=== PATIENT | female | born 1950 ===

== ENCOUNTER 2024-03-01 08:34 | Day surgery (SDC) | payer MEDICARE, SELFPAY ==
[2024-03-01 08:36] VITALS: BP 222/89; PULSE 70; RESP 16; TEMP 35.9; O2SAT 99
[2024-03-01] MEDS: Tropicam./Phenyleph. (1/2.5%) 5 ML BTL OS ×3 (08:53→09:02)
--- NOTE | 2024-03-01 09:47 | W.ANESPRE ---
General Info Date of Service Date Performed: 03/01/24 Height: 4 ft 7 in Weight: 63.4 kg Body Mass Index (BMI): 32.5 Surgical Procedure: Operation Date: 03/01/24 10:40 Proposed Procedure Side Surgeon p Cataract Extraction with IOL Implant Left Matthew Ramírez MD Meds Allergies and Home Medications Allergies Allergy/AdvReac Type Severity Reaction Status Date / Time insect venom Allergy Intermediate Other (See Verified 03/01/24 08:49 Comment) paroxetine Allergy Intermediate Swelling/Ed Verified 03/01/24 08:49 roger Home Medication ?Medication ?Instructions ?Recorded aspirin 81 mg tablet,delayed 81 mg PO DAILY 02/27/24 release (Adult Aspirin Regimen) calcium 600 mg (as 1 cap PO BID 02/27/24 carbonate)-vitamin D3 10 mcg (400 unit) capsule ergocalciferol (vitamin D2) 1,250 1,250 mcg PO Q2W 02/27/24 mcg (50,000 unit) capsule latanoprost 0.005 % eye drops 1 drp ophthalmic (eye) DIRECTED 02/27/24 lisinopril 10 mg tablet 10 mg PO DAILY 02/27/24 lovastatin 40 mg tablet 40 mg PO QHS 02/27/24 metformin 500 mg tablet,extended 500 mg PO DAILY 02/27/24 release 24 hr prednisone 1 mg tablet 1 mg PO DAILY 02/27/24 triamterene 75 1 tab PO DAILY 02/27/24 mg-hydrochlorothiazide 50 mg tablet venlafaxine 75 mg capsule,extended 75 mg PO DAILY 02/27/24 release 24 hr (Effexor XR) Current Visit Medications: Current Medications Generic Name Dose Route Start Last Admin Trade Name Freq PRN Reason Stop Dose Admin Acetaminophen 1,000 mg 03/01/24 06:00 Acetaminophen 500 Mg Tab PO 03/31/24 05:59 Q4H PRN PRN Balanced Salt Solution 500 ml 03/01/24 06:00 Balanced Salt Soln.-Plus 500 Ml Bag OP 03/31/24 05:59 DIRECTED MOSES Miscellaneous Medication 0 ml 03/01/24 06:00 Prednisolone 1%, Moxifloxacin 0.5%, Bromfenac 0.09% 5.6ml Btl OS 03/31/24 05:59 DIRECTED MOSES Miscellaneous Medication 0 ml 03/01/24 06:00 03/01/24 09:02 Tropicam./Phenyleph. 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 Hypertension Hyperlipemia JAVIER (generalized anxiety disorder) Giant cell arteritis Environmental allergies Diabetic peripheral neuropathy Depressive disorder Cataract Arthritis Surgical History Surgical History Hx of tonsillectomy H/O: hysterectomy History of surgery left breast, procedure on right axilla History of colonoscopy Tobacco Smoking/Tobacco Use Status: Former Tobacco Use Alcohol Alcohol Intake: never Substance Use Substance use: Never Substance use type: does not use Vital Signs and Lab Results Vital Signs Most Recent Vital Signs in EMR: Most Recent Vital Signs Temp Pulse Resp BP Pulse Ox 35.9 C L 70 16 222/89 H 99 03/01/24 08:36 03/01/24 08:36 03/01/24 08:36 03/01/24 08:36 03/01/24 08:36 Lab Results Blood Type / Crossmatch: No Data to Display Complete Blood Count: No Data to Display Complete Metabolic Panel: No Data to Display Liver Function Panel: No Data to Display Coagulation Panel: No Data to Display Cardiac Panel: No Data to Display Arterial Blood Gas: No Data to Display Venous Blood Gas: No Data to Display Pancreas Panel: No Data to Display Thyroid Panel: No Data to Display Infectious Disease: No Data to Display Blood Cultures: No Data to Display Toxicology Panel: No Data to Display Anesthesia Assessment and Plan Anesthesia History Personal History: No History of Anesthesia Complications Family History: No Family History of Anesthesia Complications Exercise Tolerance Exercise Tolerance: Metabolic Equivalents>4 Pertinent Negatives Pertinent Negatives: No Symptoms of GERD Cardiac & Pulmonary Exam Cardiac Exam: Normal S1/S2 Heart Sounds Pulmonary Exam: Clear Bilateral Breath Sounds Implantable Cardiac Device Does patient have a Pacemaker or an ICD?: No Airway Exam Known Difficult Airway: No Mallampati Class: 2 Mouth Opening: Normal (> 3cm) Thyromental Distance: Greater than 3 cm Neck Range of Motion: Full ROM Neck Circumference: Normal Teeth Condition: Normal Dentition ASA Classification ASA Score: ASA 3 Emergency Case?: No NPO Status NPO Status: NPO Clears >2 hours, Solids >8 hours Anesthesia Plan Resuscitation Status: Full Code Anesthesia Technique: MAC Anesthesia Airway Planned: Natural Airway Monitors Used: Standard Monitors Preoperative Comments:: Generalized anxiety disorder.
[2024-03-01 09:49] VITALS: BMI 32.5
[2024-03-01] MEDS: Duovisc Viscoelastic System EACH 1 EACH (10:18)
[2024-03-01] MEDS: Lidocaine 1% Pres-Free 5 ML VIAL (10:18)
[2024-03-01] MEDS: Phenylephrine/Lidocaine (15/10) MG/ML 1 ML VIAL (10:19)
[2024-03-01] MEDS: Balanced Salt Soln.-PLUS 500 ML BAG OP (10:20)
[2024-03-01] MEDS: Povidone-Iodine Ophth 30 ML BTL (10:20)
[2024-03-01] MEDS: Trypan Blue 0.06% 0.5 ML SYR (10:20)
[2024-03-01] MEDS: Tetracaine 0.5% 4 ML BTL OS (10:21)
[2024-03-01] MEDS: Prednisolone 1%, Moxifloxacin 0.5%, Bromfenac 0.09% 5.6ML BTL OS (10:21)
[2024-03-01 10:39] VITALS: BP 157/92; PULSE 66; RESP 16; TEMP 36.1; O2SAT 97
--- NOTE | 2024-03-01 10:43 | W.PM.DSUDISC ---
Date of service: 03/01/24 Discharge Plan Disposition Patient Disposition: Home Discharge Details Attending Provider: Matthew Ramírez Home Meds and New Rx's Prescriptions: No Action aspirin [Adult Aspirin Regimen] 81 mg tablet,delayed release (DR/EC) 81 mg PO DAILY calcium carbonate-vitamin D3 600 mg-10 mcg (400 unit) capsule 1 cap PO BID ergocalciferol (vitamin D2) 1,250 mcg (50,000 unit) capsule 1,250 mcg PO Q2W latanoprost 0.005 % drops 1 drp ophthalmic (eye) DIRECTED lisinopril 10 mg tablet 10 mg PO DAILY lovastatin 40 mg tablet 40 mg PO QHS metformin 500 mg tablet extended release 24 hr 500 mg PO DAILY prednisone 1 mg tablet 1 mg PO DAILY triamterene-hydrochlorothiazid 75-50 mg tablet 1 tab PO DAILY venlafaxine [Effexor XR] 75 mg capsule,extended release 24hr 75 mg PO DAILY Discharge Instructions Stand Alone Forms: [facility] Post-Op Cataract, Volodymyr Stewart ([facility]) Discharge Orders Discharge Orders: Discharge Order (Routine); Ordered 03/01/24 Ordered By: Matthew Ramírez DS: Diagnosis Discharge Diagnosis (1) Cortical age-related cataract, left eye: Status: Resolved (2) Nuclear age-related cataract, left eye: Status: Resolved
--- NOTE | 2024-03-01 10:44 | W.PM.OP ---
Operative Note Operative Note PRE-OP DIAGNOSIS: Dense nuclear/cortical cataract, left eye POST-OP DIAGNOSIS: same PROCEDURE: Cataract extraction using phacoemulsification with intraocular lens implant, left eye SURGEON: Matthew Ramírez ANESTHESIA TYPE: Local By Surgeon and MAC Refer to Anesthesia Record PATHOLOGY: none sent COMPLICATIONS: None Patient was transported to: same day Patient's condition: stable Implants: Jovany Clareon [id number] Indications: Progressive decreased vision due to cataract, left eye Procedure Description: CATARACT SURGERY OPERATIVE REPORT PREOPERATIVE DIAGNOSIS: Dense nuclear/cortical cataract, left eye POSTOPERATIVE DIAGNOSIS: Same OPERATION: Cataract extraction using phacoemulsification with posterior chamber intraocular lens implant, left eye. IOL: IOL Underwriting Technician/Model: Jovany Clareon [id number] IOL Power: + 27.0 diopters IOL Serial Number: [id number] Optic Diameter: 6.0mm Haptic/Overall Diameter: 13.0mm PHACO INFO: Jovany Centurion Vision System with OZil and Active Fluidics Cumulative Dispersed Energy (CDE): 4.53 seconds SURGEON: Matthew Ramírez MD, TARA ANESTHESIA: Monitored Anesthesia Care (MAC), with local sub-tenon's anesthetic infiltration COMPLICATIONS: None SPECIMENS: None INDICATIONS FOR PROCEDURE: The patient is a 73-year-old lady with history of diminished visual acuity in her left eye secondary to the development of dense nuclear/cortical cataract. 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 She now presents for cataract surgery in the left eye to improve and maximize her vision. See office notes for detailed information. PROCEDURE: The correct surgical eye was identified and marked as the left eye and the pupil was dilated in the preoperative area using mydriatics and cycloplegics. The dilated pupil size was 5.0 mm. Oral sedation was administered in the form of an Imprimis MKO Melt (midazolam 3mg/ketamine 25mg/ondansetron 2mg). The patient was brought to the operating room where cardiopulmonary monitoring was instituted and surgical time-out was performed, confirming the correct operative eye and IOL power. Topical anesthesia was administered and ophthalmic povidone-iodine 5% was instilled into the conjunctival fornices. The karuna-ocular area was prepped with Betadine 10% solution and draped in the usual sterile fashion for intraocular surgery, including an aperture drape. A Tegaderm transparent film dressing was cut in half and used to cover the lashes and lid margins. Care was taken to sequester the lashes and lid margins under the Tegaderm dressing. A lid speculum was placed between the lids of the operative eye and the Jovany LuxOR Revalia operating microscope was maneuvered into position. Melly scissors were then used to make a conjunctival buttonhole approximately 6mm posterior to the limbus in the inferonasal quadrant. Blunt dissection was carried out to expose bare sclera, and a blunt-tipped sub-tenon?s anesthesia cannula was introduced and passed posteriorly along the globe where non-preserved plain lidocaine was injected into posterior sub-Tenon?s space. A sideport knife was used to make a paracentesis port. VisionBlue was injected into the anterior chamber and allowed to sit for 30 seconds. Intraocular phenylephrine/lidocaine was injected into the anterior chamber. The anterior chamber was then filled with viscoelastic. A keratome knife was used construct a two-plane clear corneal tunnel extending 2.2mm into clear cornea. The corneal tunnel was made a bit longer due to the shallow chamber to reduce chance of iris prolapse. A flap was raised on the anterior capsule and capsulorhexis forceps were used to complete a continuous curvilinear capsulorhexis of 4.8 mm. Balanced salt solution was then used to perform cortical cleaving hydrodissection and nuclear hydrodelineation until the lens could be freely rotated within the capsular bag. The lens nucleus was then disassembled and removed within the capsular bag and iris plane using phacoemulsification. Residual cortical material was removed using the irrigation/aspiration handpiece. The posterior capsule was carefully polished to remove as much residual lens epithelial cells as safely possible. The capsular bag was then inflated and the anterior chamber deepened with viscoelastic. The lens implant described above was inserted into the capsular bag using the Jovany Autonome Injector. A Kuglen hook was used to dial the IOL into position. Residual viscoelastic was then removed first from posterior to the IOL, then from the anterior chamber using the I/A handpiece. The lens implant was noted to center nicely within the capsular bag. The incisions were stromally hydrated, and the anterior chamber was reformed using BSS. Then 0.5cc of moxifloxacin 1.0mg/ml were injected into the capsular bag and anterior chamber. The incisions were checked with a Weck spear and found to be secure. Several drops of ophthalmic povidone-iodine 5% were then applied to the eye followed by two drops of combination steroid/NSAID/antibiotic solution. The drapes were removed and a clear plastic protective eye shield was placed over the eye. The patient was then returned to [facility] Day Surgery in stable condition. Date of Procedure: 03/01/24
--- NOTE | 2024-03-01 10:51 | W.ANESPOSTOP ---
Postoperative Evaluation Date, Time and Location Date Performed: 03/01/24 Time Performed: 10:51 Patient Location: Day Surgery Unit Vital Signs Most Recent Imported Vital Signs: Most Recent Vital Signs Temp Pulse Resp BP Pulse Ox 36.1 C L 66 16 157/92 H 97 03/01/24 10:39 03/01/24 10:39 03/01/24 10:39 03/01/24 10:39 03/01/24 10:39 Pain Score Most Recent Pain Score: Most Recent Pain Score Pain Level 0 03/01/24 10:39 Assessment Mental Status: Awake (Alert & Oriented to Patient Baseline) Airway and Respiratory Function: Patent airway with normal (patient baseline) respiratory exam Cardiovascular Function: Hemodynamically Stable Hydration Status: Adequately Hydrated Nausea & Vomiting: No Nausea or Vomiting Pain: Pt. Denies Any Pain Peripheral Nerve Block: Patient did not receive a nerve block
[2024-03-01 11:14] VITALS: BP 172/80; PULSE 69; RESP 16; TEMP 36.9; O2SAT 93
== END 2024-03-01 11:25 | disposition home or self-care (01) ==
LOC: SUR 08:36
PROVIDERS: Visit Provider Ophthalmology
PROC: (CPT 66984; principal; 2024-03-01 10:30)
DX: H25.012 Cortical age-related cataract, left eye (principal); H25.12 Age-related nuclear cataract, left eye
CPT/HCPCS: 66984; 00123; V2632; J2003